=== PATIENT | female | born 1980 | race Caucasian/White ===

== ENCOUNTER 2017-01-01 07:16 | Day surgery (SDC) | payer OTHER ==
[~2017-01-01 07:16] MED LIST: HYDROCODONE/ACE1 TAB PO; LIPITOR20 M1 PO; LISINOPRIL10 MG PO; OMEPRAZOLE20 MG PO
[2017-01-01 10:12] VITALS: BP 124/72
== END 2017-01-01 10:23 | disposition home or self-care (01) | DRG 392 ==
LOC: ENDO 07:16 → ORM 10:30 → ENDO 10:30
PROVIDERS: ATTEND Surgery
PROC: 0DB78ZX Excision of Stomach, Pylorus, Via Natural or Artificial Opening Endoscopic, Diagnostic (ICD-10-PCS; principal; 2017-01-01)
PROC: 0DB48ZX Excision of Esophagogastric Junction, Via Natural or Artificial Opening Endoscopic, Diagnostic (ICD-10-PCS; 2017-01-01)
DX: R10.13 Epigastric pain (principal); K80.10 Calculus of gallbladder with chronic cholecystitis without obstruction; R63.4 Abnormal weight loss; K29.00 Acute gastritis without bleeding; K44.9 Diaphragmatic hernia without obstruction or gangrene; K29.50 Unspecified chronic gastritis without bleeding; K20.9 Esophagitis, unspecified; B96.81 Helicobacter pylori [H. pylori] as the cause of diseases classified elsewhere; F17.200 Nicotine dependence, unspecified, uncomplicated

== ENCOUNTER 2019-05-31 10:54 | Emergency (ER) | payer MEDICARE ==
[2019-05-31] MEDS ORDERED: MEDDOSEPAK PO (12:01)
[2019-05-31 12:07] VITALS: BP 138/91
[2019-05-31] MEDS ORDERED: CYCLOBENZAPR10 MG PO (12:09)
[2019-05-31] MEDS ORDERED: GABAPENTIN300 M2 PO (12:10)
== END 2019-05-31 12:15 | disposition home or self-care (01) ==
LOC: ED 10:54
DX: L50.9 Urticaria, unspecified (principal); I10 Essential (primary) hypertension; F17.210 Nicotine dependence, cigarettes, uncomplicated